=== PATIENT | male | born 1995 | race African-American/Black ===

== ENCOUNTER 2022-01-06 16:47 | Emergency (ER) | payer OTHER ==
[2022-01-06 17:00] VITALS: BP 103/66; PULSE 72; TEMP 98.7; BMI 24.3
[2022-01-06 21:21] LABS: BASO % 0.4 % (0-2.0); EOS % 1.6 % (0-4.5); HEMATOCRIT 44.9 % (35.4-49); HEMOGLOBIN 14.5 GM/dL (11.7-16.9); LYMPH % 30.4 % (8-40); MCH 22.9 pg (25.7-33.7); MCHC 32.3 g/dl (32.0-35.9); MEAN CELL VOLUME 70.7 fl (80-96); MEAN PLT VOLUME 8.6 fl (7.5-11.1); MONO % 7.9 % (3.8-10.2); NEUT % 59.7 % (42.8-82.8); PLATELET COUNT 259 10^3/uL (134-434); RBC 6.34 M/mm3 (4.00-5.60); RDW 14.8 % (11.9-15.9); WHITE BLOOD COUNT 7.8 K/mm3 (4.0-10.0)
[2022-01-06 21:41] LABS: BLOOD UREA NITROGEN 12.3 mg/dL (7-18)
[2022-01-06 21:44] LABS: CREATININE 1.1 mg/dL (0.55-1.3)
== END 2022-01-06 23:22 | disposition home or self-care (01) ==
LOC: JERFT 16:47 → JER 16:47 → JERFT 23:22
DX: R10.30 Lower abdominal pain, unspecified (principal)
CPT/HCPCS: 36415; 74177-TC; 80048; 85025; 99285-25; Q9967